=== PATIENT | female | born 1950 | race Caucasian/White ===

== ENCOUNTER → 2023-06-12 12:11 | Outpatient (REF) | payer MEDICARE, OTHER, SELFPAY | LOC: HWWDC 12:11 | PROVIDERS: ATTENDING PHYSICIAN Nurse Practitioner Family | DX: Z12.31 Encounter for screening mammogram for malignant neoplasm of breast (principal) | CPT/HCPCS: 77063; 77067 ==

== ENCOUNTER → 2023-07-12 10:40 | Outpatient (REF) | payer MEDICARE, OTHER, SELFPAY ==
[2023-07-12 11:22] LABS: % Basophils 0.8 % (0-2); % Eosinophils 0.7 % (0-6); % Immature Granulocytes 0.5 % (0-0.5); % Monocytes 7.7 % (1.7-9.3); % Neutrophils 60.3 % (42.2-75.2); Absolute Basophils 0.1 10^3/uL (0-0.2); Absolute Lymphocytes 1.8 10^3/uL (1.2-3.4); Absolute Monocytes 0.5 10^3/uL (0.1-0.6); Absolute Neutrophils 3.7 10^3/uL (1.4-6.5); Hematocrit 44.9 % (37.0-47.0); Hemoglobin 15.6 g/dL (12.0-16.0); Mean Corp Hgb Conc. 34.7 g/dL (33.0-37.0); Mean Corpuscular Hgb 32.4 pg (27.0-31.0); Mean Corpuscular Volume 93.3 fL (81.0-99.0); Mean Platelet Volume 8.4 fL (7.4-10.4); Nucleated Red Blood Cells % 0 %; Platelet Count 223 10^3/uL (130-400); Red Blood Cell Count 4.81 10^6/uL (4.20-5.40); White Blood Cell Count 6.1 10^3/uL (4.8-10.8)
[2023-07-12 11:33] LABS: ALT (SGPT) 22 U/L (0-35); AST (SGOT) 31 U/L (14-36); Alkaline Phosphatase 66 U/L (38-126); Blood Urea Nitrogen 19 mg/dl (7-17); Calcium 9.8 mg/dl (8.4-10.2); Carbon Dioxide 25 mmol/L (22-30); Chloride 104 mmol/L (98-107); Glucose 91 mg/dl (70-99); Magnesium 2.1 mg/dl (1.6-2.3); Potassium 4.3 mmol/L (3.5-5.1); Sodium 135 mmol/L (135-145); Total Protein 7.4 g/dl (6.3-8.2); eGFR > 60.00
[2023-07-12 11:36] LABS: INR 0.98
== END ==
LOC: SDSPAT 10:40
PROVIDERS: ATTENDING PHYSICIAN Internal Medicine Cardiovascular Disease; FAMILY PHYSICIAN Nurse Practitioner Family; OTHER PHYSICIAN Internal Medicine Cardiovascular Disease
DX: Z01.818 Encounter for other preprocedural examination (principal); I48.0 Paroxysmal atrial fibrillation
CPT/HCPCS: 36415; 75572; 80053; 83735; 85025; 85610; 86850; 86900; 86901; 93005; Q9967

== ENCOUNTER → 2023-07-25 06:34 | Outpatient (REF) | payer MEDICARE, OTHER, SELFPAY | LOC: MRI 3T 06:34 | PROVIDERS: ATTENDING PHYSICIAN Specialist; FAMILY PHYSICIAN Nurse Practitioner Family | DX: M25.562 Pain in left knee (principal) | CPT/HCPCS: 73721 ==

== ENCOUNTER 2023-07-26 08:24 | Day surgery (SDC) | payer MEDICARE, OTHER, SELFPAY ==
[2023-07-12 10:48] VITALS: BMI 29.7
[2023-07-26] VITALS (11 sets, daily range): BP systolic 111–148; BP diastolic 75–86
[2023-07-26 11:14] LABS: ACT-LR - POC 253 Seconds (116-155)
[2023-07-26 11:28] LABS: ACT-LR - POC 366 Seconds (116-155)
[2023-07-26 11:46] LABS: ACT-LR - POC 308 Seconds (116-155)
--- NOTE | 2023-07-26 12:26 | ITS.CL.ABL ---
Information Security Analyst - Ablation
Ablation
Procedure Report:
ELECTROPHYSIOLOGIC STUDY AND POSSIBLE ABLATION
DATE: July 26, 2023
Primary Care Provider: Ariadne Weldon NP
Primary study abroad coordinator: Dr. Hannah Fernando
INDICATION:
Symptomatic Atrial Fibrillation.
Paroxysmal
HISTORY: See H and P.
Symptomatic AF, poorly controlled with attempted medical therapy
HAS-BLED:1
Age
CHADSVASc: 2
Age
Gender
PRESENTING RHYTHM: SR
HISTORY: See H and P.
Symptomatic AF, poorly controlled with attempted medical therapy.
ANTICOAGULATION: Eliquis
'TIME-OUT': called and confirmed.
SEDATION/ANESTHESIA: provided via the anesthesia department using general anesthesia.
Ultrasound Guidance performed by wv was utilized for femoral venous Vascular Access b/l.
A decapolar CS catheter was placed within the CS for mapping and pacing.
The intracardiac ultrasound catheter was positioned in the RA for continuous intracardiac ultrasound imaging.
Heparin bolus and infusion to target ACT at 300 -350 seconds was administered. Transseptal puncture was performed. This entailed advancing a sheath with dilator into the superior vena cava and withdrawing both (monitoring intracardiac ultrasound,
fluoroscopy and tip pressure) with the tip oriented toward the atrial septum. The fossa ovalis was engaged (indicated by sudden displacement of the sheath tip as well as tenting of the fossa seen on intracardiac ultrasound).
AcProfilepasser transseptal system was used. Left atrial catheter position was confirmed by echocardiographic imaging, pressure monitoring (LA mean pressure 8 mm Hg) and fluoroscopy. The sheath was advanced over the dilator and positioned in the left
atrium.
The multipolar mapping catheter was initially positioned through the transseptal sheath for high density mapping.
Geometry and voltage mapping was performed using the Navera multipolar grid catheter. Navex was utilized for three-dimensional electroanatomical mapping.
A 3-D map was created using Navex. A 3-D reconstructed CT image was compared to the 3-D Navex map to assist in anatomic evaluation, mapping and ablation.
The [email or web address] Pulse Select PFA catheter and system was used for cardiac ablation. Catheter positioning was guided and confirmed using both I.C.E. and fluoroscopy.
PV isolation approach was used to electrically isolate each PV ostia. Remapping with the Navera multipolar grid catheter found that all PVPs were eliminated at each vein demonstrating entrance block. Also pacing from the multipolar mapping
catheter around the the circumference of the ostia was performed at 10 ma and 2.0 msec output to assess for exit block. This demonstrated electrical isolation at each of the pulmonary vein ostia [ ] LSPV, LIPV, RSPV, RIPV. Additionally remapping
findings wide area circumferential ablation around each of the pulmonary vein sets.
I.C.E. :
Pre-Ablation Post-Ablation
LVEF: 55% 55%
WMA: None none
Pericardial effusion: None none
COMPLICATIONS:
None
SUMMARY:
- Mapping and ablation to isolate the PVs
- Additional AF ablation set after PVI.
- 3-D Electroanatomical Mapping
- Intracardiac Ultrasound
Post ablation, I discussed today's findings and results with the patient's , Leon.
RECOMMENDATIONS:
- Observe in monitored bed.
- Maintain oral anticoagulation.
- Continue cardiovascular care with Dr. Hannah Fernando
Copy to: Dr. Hannah Fernando
[2023-07-26] MEDS: ANESTHETIC LOZENGE 1 LOZENGE PO (13:21)
--- NOTE | 2023-07-26 16:23 | W.PN.UPDATE ---
Update Note
Progress Note Update
72 yo WF s/p PVI (same day) She feels good, no cp, sob, tegan diet, voiding, b/l groins c/d/i no HT, EKG SR. She will take Eliquis at 6pm at home tonight. She will continue metoprolol. Activity restrictions reviewed. She will f/u Dr. Robledo in 2 mo. She
is for d/c home after 5pm.
SUMMARY:
- Mapping and ablation to isolate the PVs
- Additional AF ablation set after PVI.
- 3-D Electroanatomical Mapping
- Intracardiac Ultrasound
Post ablation, I discussed today's findings and results with the patient's , Leon.
RECOMMENDATIONS:
- Observe in monitored bed.
- Maintain oral anticoagulation.
- Continue cardiovascular care with Dr. Hannah Fernando
Copy to: Dr. Hannah Fernando
== END 2023-07-26 16:50 | disposition home or self-care (01) ==
LOC: CATH 08:24
PROVIDERS: ATTENDING PHYSICIAN Internal Medicine Cardiovascular Disease; FAMILY PHYSICIAN Nurse Practitioner Family; OTHER PHYSICIAN Internal Medicine Cardiovascular Disease
DX: I48.0 Paroxysmal atrial fibrillation (principal); R06.02 Shortness of breath; I10 Essential (primary) hypertension; E78.5 Hyperlipidemia, unspecified; M19.90 Unspecified osteoarthritis, unspecified site; Z79.01 Long term (current) use of anticoagulants
CPT/HCPCS: C1732; C1733; C1894; C1769; C1730; C1759; C1892; 76937; 85347; 86900; 86901; 93005; 93656; 93657

== ENCOUNTER → 2024-03-07 09:00 | Outpatient (REF) | payer MEDICARE, OTHER, SELFPAY | LOC: RAD 09:00 | PROVIDERS: ATTENDING PHYSICIAN Obstetrics & Gynecology; FAMILY PHYSICIAN Family Medicine | DX: Z78.0 Asymptomatic menopausal state (principal) | CPT/HCPCS: 77080 ==

== ENCOUNTER → 2024-07-17 14:32 | Outpatient (REF) | payer MEDICARE, OTHER, SELFPAY | LOC: WDC 14:32 | PROVIDERS: ATTENDING PHYSICIAN Obstetrics & Gynecology; FAMILY PHYSICIAN Family Medicine | DX: Z12.31 Encounter for screening mammogram for malignant neoplasm of breast (principal) | CPT/HCPCS: 77063; 77067 ==

== ENCOUNTER → 2024-09-16 08:43 | Outpatient (REF) | payer MEDICARE, OTHER, SELFPAY | LOC: RAD 08:43 | PROVIDERS: ATTENDING PHYSICIAN Nurse Practitioner Family; FAMILY PHYSICIAN Family Medicine | DX: N95.0 Postmenopausal bleeding (principal) | CPT/HCPCS: 76830; 76856 ==

== ENCOUNTER 2024-12-03 06:17 | Day surgery (SDC) | payer MEDICARE, OTHER, SELFPAY ==
[2024-12-03] VITALS (8 sets, daily range): BP systolic 114–128; BP diastolic 70–89; BMI 28.5
[2024-12-03] MEDS: NORMOSOL-R/PLASMALYTE-A 1000 IV (07:50)
[2024-12-03] MEDS: TYLENOL 1000 MG PO (08:15)
[2024-12-03] MEDS: NEURONTIN 100 MG PO (08:15)
[2024-12-03 08:18] LABS: Hematocrit 44.9 % (37.0-47.0); Hemoglobin 15.7 g/dL (12.0-16.0); Mean Corp Hgb Conc. 35.0 g/dL (33.0-37.0); Mean Corpuscular Volume 92.0 fL (81.0-99.0); Nucleated Red Blood Cells % 0 %; Platelet Count 260 10^3/uL (130-400); Red Cell Dist. Width 11.9 % (11.5-14.5)
[2024-12-03 08:37] LABS: Blood Urea Nitrogen 16 mg/dl (7-17); Calcium 9.5 mg/dl (8.4-10.2); Carbon Dioxide 23 mmol/L (22-30); Chloride 108 mmol/L (98-107); Estimated Creatinine Clearance 43 ml/min; Glucose 92 mg/dl (70-99); Potassium 4.2 mmol/L (3.5-5.1); Sodium 138 mmol/L (135-145); eGFR 59.86
--- NOTE | 2024-12-03 09:41 | W.IMMPOSTOP ---
Surgical Immed Post Op Note
-
Primary Surgeon: Fadumo Dumont DO
Assisting Surgeon: none
Pre-op Diagnosis: Postmenopausal/postcoital bleeding, insufficient biopsy from office sample
Post-op Diagnosis: same
Procedure Performed: Hysteroscopy D&C
Anesthesia Type: general LMA Dr. Jaime
Specimen / Cultures: 1. endocervical curettings 2. endometrial curettings
Estimated Blood Loss: < 2ml
Fluid deficit: 5ml
Complications: none
Operative Findings: Normal appearing endocervical canal and endometrial cavity. Bilateral tubal ostia seen. No evidence of polyp, tumor or mass.
Counts correct times 2.
Stable to recovery.
== END 2024-12-03 11:00 | disposition home or self-care (01) ==
LOC: SDS 06:17
PROVIDERS: ATTENDING PHYSICIAN Obstetrics & Gynecology
DX: N95.0 Postmenopausal bleeding (principal); N93.0 Postcoital and contact bleeding
CPT/HCPCS: 58558; 80048; 85025; 86850; 86900; 86901; 88305

== ENCOUNTER 2024-12-06 07:18 | Emergency (ER) | payer MEDICARE, OTHER, SELFPAY ==
[2024-12-06 07:22] VITALS: BP 150/91
[2024-12-06 08:10] LABS: Hematocrit 44.7 % (37.0-47.0); Hemoglobin 15.4 g/dL (12.0-16.0); Mean Corp Hgb Conc. 34.5 g/dL (33.0-37.0); Mean Corpuscular Volume 90.7 fL (81.0-99.0); Nucleated Red Blood Cells % 0 %; Platelet Count 227 10^3/uL (130-400); Red Cell Dist. Width 12.0 % (11.5-14.5)
[2024-12-06 08:25] LABS: ALT (SGPT) 18 U/L (0-35); AST (SGOT) 24 U/L (14-36); Albumin 4.6 g/dl (3.5-5.0); Alkaline Phosphatase 55 U/L (38-126); Blood Urea Nitrogen 16 mg/dl (7-17); Calcium 9.4 mg/dl (8.4-10.2); Carbon Dioxide 23 mmol/L (22-30); Chloride 110 mmol/L (98-107); Glucose 95 mg/dl (70-99); Potassium 4.0 mmol/L (3.5-5.1); Sodium 140 mmol/L (135-145); Total Protein 6.8 g/dl (6.3-8.2); eGFR > 60.00
--- NOTE | 2024-12-06 09:59 | ED.GENMED ---
History of Present Illness
General
Chief Complaint: Dizziness
Source: patient and spouse
Time Seen by Provider: 12/06/24 07:30
History of Present Illness
History of Present Illness:
Note:
CHIEF COMPLAINT(S)
Dizziness and right ear fullness.
HISTORY OF PRESENT ILLNESS
The patient is a 74-year-old female with a past medical history notable for atrial fibrillation who presented to the emergency department with complaints of dizziness and fullness in the right ear. The symptoms began the previous evening while
watching television, described as a sensation of movement, persisting upon waking the following morning. The dizziness was exacerbated by movement, necessitating the patient to hold onto objects when ambulating. No dizziness is currently present.
The patient reported associated nausea and sensation of ear fullness, specifically in the right ear, which has been intermittently bothering her for a few weeks to a month but would lessen with certain head positions.
The patient expressed concern about her rapid heart rate, potentially reaching 150-170 beats per minute. However, she has been in normal sinus rhythm according to recent evaluations, with no current symptoms of atrial fibrillation and an
electrocardiogram confirming sinus rhythm.
Additional historian
Patient spouse states that the patient is on Eliquis but was advised to stop it for three days due to a dilation and curettage procedure performed recently. She resumed the medication promptly 24 hours after the procedure.
PAST MEDICAL AND SURGICAL HISTORY
- Atrial fibrillation (history of ablation performed).
- Recent dilation and curettage procedure.
EXTERNAL RECORDS REVIEWED
Previous labs were conducted in conjunction with the recent dilation and curettage.
CHRONIC MEDICAL CONDITIONS SIGNIFICANTLY AFFECTING CARE
Atrial fibrillation.
MEDICATIONS
- Eliquis (anticoagulant).
REVIEW OF SYSTEMS
- Ear, Nose, and Tongue: Fullness and intermittent humming in the right ear.
- Cardiovascular: History of atrial fibrillation. Concern about rapid heart rate.
- Neurological: Dizziness exacerbated by movement; no current dizziness; history of room-spinning sensation.
PHYSICAL EXAM
General: Alert, no acute distress.
Skin: Warm, dry.
Head: Normocephalic, atraumatic.
Neck: Supple, trachea midline.
Eyes, Ears, Nose, Mouth, and Throat: Oral mucosa moist, Tympanic membranes normal bilaterally, External auditory canals normal.
Cardiovascular: Regular rate and rhythm, Heart rate approximately 58 bpm, no murmurs.
Respiratory: Non-labored breathing, Supraclavicular retractions absent.
Gastrointestinal: Abdomen nondistended
Back: Normal range of motion, Normal alignment.
Musculoskeletal: Normal range of motion, normal strength.
Neurological: Alert and oriented to person, place, time, and situation, No focal neurological deficit observed, Normal finger to nose test, No pronator drift, [id number] testing normal bilaterally.
Psychiatric: Cooperative, appropriate mood & affect.
PLAN
- Conduct basic laboratory tests to evaluate hemoglobin levels post-recent dilation and curettage procedure.
- If symptoms of dizziness persist, consider vestibular rehabilitation or refer for specialized ENT evaluation for further assessment of ear symptoms.
- Consider medications for symptomatic relief from vertiginous episodes if symptoms recurred.
- Encourage a follow-up with the patients family physician regarding persistent ear symptoms, particularly if any hearing changes or persistent fullness are noted.
DIFFERENTIAL DIAGNOSIS
The Differential Diagnosis includes, in no particular order and is not limited to:
1. Benign paroxysmal positional vertigo
2. Labyrinthitis
3. Vestibular neuritis
4. Central causes of vertigo
5. Menieres disease
6. Migraine-associated vertigo
7. Cardiovascular causes (e.g., arrhythmias, transient ischemic attacks)
8. Anxiety-related dizziness
9. Drug side effects
10. Hypertension-related dizziness
Disposition:
SUMMARY OF ENCOUNTER
The patient, a 74-year-old female with a history of atrial fibrillation, presented to the emergency department with an episode of room-spinning dizziness, alongside recent symptoms of ringing and fullness in the right ear. The patients cerebellar
and gait exams were normal, and tympanic membranes (TMs) were normal bilaterally. I suspect peripheral vertigo given the characteristics of her symptoms, but central vertigo cannot be entirely ruled out. Laboratory results were unremarkable. Based
on her findings and presentation, I recommended discharge with follow-up plans.
DISPOSITION
Discharge.
ASSESSMENT
Peripheral vertigo suspected due to symptom nature, but central vertigo remains a consideration.
PLAN
The patient is discharged with a recommendation for outpatient follow-up with an ear, nose, and throat (ENT) specialist as well as her primary care physician (PCP). Vestibular physical therapy was also recommended for management of symptoms.
PATIENT EDUCATION AND COUNSELING
Discussed the suspected diagnosis of peripheral vertigo and the need for follow-up with ENT and PCP. Educated the patient about vestibular physical therapy as a treatment option.
FOLLOW-UP INSTRUCTIONS
Instructed the patient to follow up with an ENT specialist and her primary care physician.
MEDICAL DECISION MAKING
- Number and Complexity of Problems Addressed: Chronic conditions affecting care: Atrial fibrillation. Differential diagnosis includes benign paroxysmal positional vertigo, labyrinthitis, vestibular neuritis, central causes of vertigo, M�ni�re�s
disease, migraine-associated vertigo, cardiovascular causes, anxiety-related dizziness, drug side effects, and hypertension-related dizziness.
- Data:
- Category 1: Labs reviewed showed unremarkable results. No additional testing deemed necessary.
- Risk: Consideration of Admission/Observation: Escalation of care including admission/observation was considered given the complexity and risk of the patients presenting complaint, exam findings, and/or their underlying comorbidities. However,
ultimately the patient is deemed safe for outpatient management with close follow-up. Reasoning: Work-up reassuring, does not reveal any acute life/organ threatening processes, the patients symptoms are well controlled upon reevaluation, and the
patient is agreeable with discharge and reliable for follow-up.
DIAGNOSIS
Suspected peripheral vertigo (ICD-10: H81.10).
Past History
Past History
ED Past Medical History: None
ED Past Surgical History: , Orthopedic and Other (hernia)
Social History
Tobacco: Non-smoker
Personal:
Living: with family
Phy Exam
Physical Exam
Physical Exam:
.
Course
Orders/Labs/Results
Orders:
Orders
12/06/24 07:26
ECG [Electrocardiogram (*1)] Urgent
Reason for Study: Palpitations
EKG- Treatment ONCE
12/06/24 08:01
Complete Blood Count/With Diff Urgent
Comprehensive Metabolic Panel Urgent
Abnormal Lab Results
12/06/24
08:01
MCH 31.2 H pg
(27.0-31.0)
Absolute Lymphs (auto) 1.1 L 10^3/uL
(1.2-3.4)
Absolute Monos (auto) 0.7 H 10^3/uL
(0.1-0.6)
Lymphocytes % 17.7 L %
(20.5-51.1)
Monocytes % 11.1 H %
(1.7-9.3)
Chloride 110 H mmol/L
(98-107)
12/06/24 08:01
12/06/24 08:01
Vital Signs
Initial and Last Documented VS:
Initial Vital Signs
Temp Pulse Resp BP Pulse Ox
97.9 F 79 18 150/91 98
12/06/24 07:22 12/06/24 07:22 12/06/24 07:22 12/06/24 07:22 12/06/24 07:22
Last Documented Vital Signs
Temp Pulse Resp BP Pulse Ox
97.9 F 79 18 150/91 98
12/06/24 07:22 12/06/24 07:22 12/06/24 07:22 12/06/24 07:22 12/06/24 10:01
*Pulse Oximetry
SaO2: 98
Oxygen Mode of Delivery: Room air
Patient hypoxic: no
*EKG
Interpreted by ED Provider?: Yes
Interpretation: abnormal
Rate: bradycardiac
Rhythm: sinus
[place]: normal axis
Ischemia: no ischemia
*Supervisor Transferring And Boxing Interpretation
Rate: normal
Interpretation: normal
Rhythm: sinus
*Critical Care Note
Total Time (30-74mins, 75-104mins- exclusive of procedures): Not Applicable
ED Attending Note
-
Portions of this chart may have been created with voice recognition software.� Occasional wrong word or��sound alike� substitutions may have occurred due to the inherent limitations of voice recognition software.
Discharge Plan
Departure
Patient Disposition: Home (Routine Discharge)
Date of Disposition: 12/06/24
Time of Disposition: 10:00
Patient with high blood pressure during this ER visit?: Yes
Discharge Problem:
Vertigo
Instructions: Vertigo (a Type of Dizziness) (DC), BLOOD PRESSURE
Prescriptions:
New
meclizine 25 mg tablet
25 mg PO TID Qty: 14 0RF
No Action
cholecalciferol (vitamin D3) [Vitamin D3] 25 mcg (1,000 unit) Capsule
25 mcg PO DAILY
calcium carbonate-vitamin D3 [Calcium 600 + D(3)] 600 mg-10 mcg (400 unit) Tablet
1 tab PO DAILY
icosapent ethyl [Vascepa] 1 gram Capsule
1 g PO DAILY
Eliquis 5 mg Tablet
5 mg PO BID
psyllium husk 0.4 gram Capsule
0.8 g PO DAILY
metoprolol succinate 25 MG tablet extended release 24 hr
25 mg PO HS
acetaminophen 650 mg Tablet Extended Release
1,300 mg PO BIDPRN PRN (Reason: pain)
rosuvastatin 10 mg Tablet
10 mg PO HS
calcium carbonate-vitamin D3 [Super Calcium/D] 600 mg-5 mcg (200 unit) Tablet
1 tab PO DAILY
Patient Comments:
w/ Zinc
Referrals:
Eichorn,Eric R., [Active, ENT]
Eduarda Naik MD [Family Provider, Family Practice]
Activity Restrictions/Additional Instructions:
Please see your doctor in the next 3 to 5 days for follow-up and reevaluation. Return immediately for worsening symptoms, difficulty walking, vision changes, motor weakness, persistent dizziness or any other concerns. In addition, follow-up with
ENT may be necessary. Also please consider follow-up with our vestibular physical therapy clinic as discussed.
Interventions
Interventions:
*Risk Screen - Suicide Last Done: 12/06/24 07:22
*General Assessment Last Done: 12/06/24 07:22
*Neglect/Abuse Screening Last Done: 12/06/24 08:14
*ED- Fall Risk Assessment Last Done: 12/06/24 10:18
*ED COVID-19 Vaccine History Last Done: 12/06/24 08:14
*ED Influenza Vaccine History Last Done: 12/06/24 08:14
*Nursing Disposition Last Done: 12/06/24 10:18
ED- Neurological Assessment Last Done: 12/06/24 08:03
ED- Cardiac Assessment Last Done: 12/06/24 10:18
Discharge Date and Time
Discharge Date/Time: 12/06/24 10:18
Print Language: GREEK
== END 2024-12-06 10:18 | disposition home or self-care (01) ==
LOC: EMR 07:18
PROVIDERS: EMERGENCY PHYSICIAN Emergency Medicine; FAMILY PHYSICIAN Family Medicine
DX: R42 Dizziness and giddiness (principal); R03.0 Elevated blood-pressure reading, without diagnosis of hypertension; I48.91 Unspecified atrial fibrillation; Z79.01 Long term (current) use of anticoagulants
CPT/HCPCS: 99284; 80053; 85025; 93005